=== PATIENT | male | born 1930 | race Caucasian/White ===

== ENCOUNTER 2016-08-15 09:14 | Emergency (ER) | payer OTHER ==
[~2016-08-15] VITALS: Ht 172.7 cm; Wt 75.7 kg
[~2016-08-15 09:14] MED LIST: CARV3.1212 PO; CHOL20003 PO; DIGO125T PO; LISI-170 PO; METH4TAB2 PO; OMEP20CA14 PO; OXYC1TAB7 PO; RIVA20TA PO; WARF5TAB
[2016-08-15 09:16] VITALS: BP 130/80
[2016-08-15] MEDS ORDERED: ALLO100T30 PO (09:31)
== END 2016-08-15 10:26 | disposition home or self-care (01) ==
LOC: ED 10:20
DX: R04.0 Epistaxis (principal); M10.9 Gout, unspecified; I48.91 Unspecified atrial fibrillation; N19 Unspecified kidney failure; I11.9 Hypertensive heart disease without heart failure; Z96.89 Presence of other specified functional implants
CPT/HCPCS: 30901

== ENCOUNTER 2016-08-19 06:24 | Emergency (ER) | payer OTHER ==
[~2016-08-19] VITALS: Ht 172.7 cm; Wt 75.0 kg
[~2016-08-19 06:24] MED LIST changes: +ALLO100T30 PO
[2016-08-19] MEDS ORDERED: PHENYLEPHRINE NASAL 0.5%, 15ML SPRAY NAS STA (06:42)
[2016-08-19] MEDS ORDERED: PHENYLEPHRINE NASAL 1%, 15ML SPRAY ONE (06:45)
[2016-08-19] MEDS ORDERED: LIDOCAINE 1%, 20ML INFIL ONE (07:00)
[2016-08-19 07:10] VITALS: BP 135/85
== END 2016-08-19 07:29 | disposition home or self-care (01) ==
LOC: ED 07:24
DX: R04.0 Epistaxis (principal); I10 Essential (primary) hypertension; M10.9 Gout, unspecified; I48.91 Unspecified atrial fibrillation; I11.9 Hypertensive heart disease without heart failure; I12.9 Hypertensive chronic kidney disease with stage 1 through stage 4 chronic kidney disease, or unspecified chronic kidney disease; N18.9 Chronic kidney disease, unspecified; Z95.0 Presence of cardiac pacemaker
CPT/HCPCS: 30901

== ENCOUNTER 2016-10-08 05:56 | Inpatient (IN) | payer OTHER ==
[~2016-10-08] VITALS: Ht 167.6 cm; Wt 81.2 kg
[2016-10-08] MEDS ORDERED: FUROSEMIDE 40 MG/4 ML IVPush ONE (06:30)
[2016-10-08] MEDS ORDERED: SODIUM CHLORIDE FLUSH 10ML SYR IVF ONE (06:30)
[2016-10-08] MEDS ORDERED: FUROSEMIDE 20 MG/2 ML ONE (06:36)
[2016-10-08] MEDS ORDERED: MECLIZINE CHEWABLE 25 MG TAB ONE (07:16)
[2016-10-08 07:17] LABS: BLOOD UREA NITROGEN 16 mg/dL (7-18)
[2016-10-08 07:23] LABS: ASPARTATE AMINO TRANSFERASE 22 U/L (15-37)
[2016-10-08] MEDS ORDERED: MECLIZINE CHEWABLE 25 MG TAB PO ONE (07:30)
[2016-10-08 07:31] LABS: IS PT STATUS REG ER OR PRE ER? YES
[2016-10-08] MEDS ORDERED: SODIUM CHLORIDE 0.9% 1,000 ML IV ONE (08:00)
[2016-10-08] MEDS ORDERED: CEFTRIAXONE 1,000 MG in SODIUM CHLORIDE 0.9% 50 ML IV ONE (08:00)
[2016-10-08] MEDS ORDERED: AZITHROMYCIN 500 MG in SODIUM CHLORIDE 0.9% 250 ML IV ONE (08:00)
[2016-10-08] MEDS ORDERED: RIVA15TA PO (08:51)
[2016-10-08] MEDS ORDERED: DOCUSATE 100 MG CAPSULE PO PRN (09:30)
[2016-10-08] MEDS ORDERED: BISACODYL 10 MG SUPP PR PRN (09:30)
[2016-10-08] MEDS ORDERED: ONDANSETRON 2MG/ML, 2ML IVPush PRN (09:30)
[2016-10-08] MEDS ORDERED: ACETAMINOPHEN 325 MG TABLET PO PRN (09:30)
[2016-10-08 09:49] VITALS: BP 127/88
[2016-10-08] MEDS: RIVAROXABAN 15 MG TABLET PO SCH (10:12)
[2016-10-08] MEDS: LISINOPRIL 5 MG TABLET PO SCH (10:12)
[2016-10-08] MEDS: ALLOPURINOL 100 MG TABLET PO SCH (10:13)
[2016-10-08] MEDS: DIGOXIN 0.125 MG TABLET PO SCH (10:13)
[2016-10-08] MEDS: CARVEDILOL 3.125 MG TABLET PO SCH ×2 (10:13→20:13)
[2016-10-08] MEDS: POLYETHYLENE GLYCOL 17 GM PACKET PO PRN (10:34)
[2016-10-08 13:13] VITALS: BP 131/91
[2016-10-08 13:41] LABS: IS PT STATUS REG ER OR PRE ER? NO
[2016-10-08 19:31] VITALS: BP 123/76
[2016-10-08] MEDS: SODIUM CHLORIDE FLUSH 3ML SYRINGE IVF SCH (20:14)
[2016-10-08] MEDS: CEFTRIAXONE PMX 1GM/50ML 50 ML IV SCH (20:14)
[2016-10-08] MEDS ORDERED: DIPHENHYDRAMINE 25 MG CAPSULE PO PRN (21:30)
[2016-10-09 01:09] VITALS: BP 135/74
[2016-10-09 05:41] LABS: BLOOD UREA NITROGEN 15 mg/dL (7-18)
[2016-10-09 08:00] VITALS: BP 118/68
[2016-10-09] MEDS: FUROSEMIDE 40 MG/4 ML IV SCH (09:18)
[2016-10-09] MEDS: RIVAROXABAN 15 MG TABLET PO SCH (09:21)
[2016-10-09] MEDS: SODIUM CHLORIDE FLUSH 3ML SYRINGE IVF SCH ×2 (09:22→20:15)
[2016-10-09] MEDS: SPIRONOLACTONE 25 MG TABLET PO SCH (09:22)
[2016-10-09] MEDS: LISINOPRIL 5 MG TABLET PO SCH (09:22)
[2016-10-09] MEDS: CARVEDILOL 3.125 MG TABLET PO SCH ×2 (09:22→20:14)
[2016-10-09] MEDS: OMEPRAZOLE 20 MG CAPSULE.DR PO SCH (09:22)
[2016-10-09] MEDS: CEFTRIAXONE PMX 1GM/50ML 50 ML IV SCH ×2 (09:23→20:14)
[2016-10-09] MEDS: FLUTICASONE NASAL SPRAY 16GM NAS SCH ×2 (09:23→20:14)
[2016-10-09] MEDS: ALLOPURINOL 100 MG TABLET PO SCH (09:24)
[2016-10-09] MEDS: DIGOXIN 0.125 MG TABLET PO SCH (09:26)
[2016-10-09] MEDS: AZITHROMYCIN 500 MG in SODIUM CHLORIDE 0.9% 250 ML IV SCH (11:41)
[2016-10-09 14:00] VITALS: BP 107/67
[2016-10-09 15:00] VITALS: BP 108/74
[2016-10-09 19:00] VITALS: BP 93/57
[2016-10-09 20:06] VITALS: BP 121/66
[2016-10-10 01:17] VITALS: BP 116/76
[2016-10-10 05:47] LABS: BLOOD UREA NITROGEN 17 mg/dL (7-18)
[2016-10-10] MEDS: AZITHROMYCIN 500 MG in SODIUM CHLORIDE 0.9% 250 ML IV SCH (08:08)
[2016-10-10] MEDS: FUROSEMIDE 40 MG/4 ML IV SCH (08:09)
[2016-10-10] MEDS: OMEPRAZOLE 20 MG CAPSULE.DR PO SCH (08:09)
[2016-10-10 08:11] VITALS: BP 123/74
[2016-10-10] MEDS: SPIRONOLACTONE 25 MG TABLET PO SCH (08:13)
[2016-10-10] MEDS: FLUTICASONE NASAL SPRAY 16GM NAS SCH ×2 (08:13→22:05)
[2016-10-10] MEDS: SODIUM CHLORIDE FLUSH 3ML SYRINGE IVF SCH ×2 (08:13→22:06)
[2016-10-10] MEDS: CARVEDILOL 3.125 MG TABLET PO SCH ×2 (08:13→22:06)
[2016-10-10] MEDS: LISINOPRIL 5 MG TABLET PO SCH (08:14)
[2016-10-10] MEDS: DIGOXIN 0.125 MG TABLET PO SCH (08:14)
[2016-10-10] MEDS: RIVAROXABAN 15 MG TABLET PO SCH (08:15)
[2016-10-10] MEDS: ALLOPURINOL 100 MG TABLET PO SCH (08:16)
[2016-10-10] MEDS: CEFTRIAXONE PMX 1GM/50ML 50 ML IV SCH ×2 (10:03→22:06)
[2016-10-10 14:13] VITALS: BP 119/75
[2016-10-10] MEDS ORDERED: SODIUM BICARBONATE 4.2%, 5ML ONE (15:04)
[2016-10-10] MEDS ORDERED: LIDOCAINE 1%, 20ML ONE (15:04)
[2016-10-10 15:56] LABS: CYTOLOGY BODY FLUID RECD INTO PATHOLOGY; CYTOLOGY BODY FLUID SOURCE PLEURAL FLUID
[2016-10-10 19:27] VITALS: BP 115/69
[2016-10-11 01:35] VITALS: BP 118/65
[2016-10-11] MEDS: POLYETHYLENE GLYCOL 17 GM PACKET PO PRN ×2 (05:20→13:59)
[2016-10-11 06:03] LABS: BLOOD UREA NITROGEN 16 mg/dL (7-18)
[2016-10-11 07:10] VITALS: BP 109/65
[2016-10-11] MEDS: AZITHROMYCIN 500 MG in SODIUM CHLORIDE 0.9% 250 ML IV SCH (08:30)
[2016-10-11] MEDS: ALLOPURINOL 100 MG TABLET PO SCH (09:00)
[2016-10-11] MEDS: FLUTICASONE NASAL SPRAY 16GM NAS SCH ×2 (09:48→20:31)
[2016-10-11] MEDS: FUROSEMIDE 40 MG/4 ML IV SCH (09:48)
[2016-10-11] MEDS: SODIUM CHLORIDE FLUSH 3ML SYRINGE IVF SCH ×2 (09:49→20:31)
[2016-10-11] MEDS: SPIRONOLACTONE 25 MG TABLET PO SCH (09:49)
[2016-10-11] MEDS: OMEPRAZOLE 20 MG CAPSULE.DR PO SCH (09:50)
[2016-10-11] MEDS: CARVEDILOL 3.125 MG TABLET PO SCH ×2 (09:50→20:31)
[2016-10-11] MEDS: DIGOXIN 0.125 MG TABLET PO SCH (09:50)
[2016-10-11] MEDS: LISINOPRIL 5 MG TABLET PO SCH (09:51)
[2016-10-11] MEDS: RIVAROXABAN 15 MG TABLET PO SCH (09:51)
[2016-10-11] MEDS: CEFTRIAXONE PMX 1GM/50ML 50 ML IV SCH ×3 (09:53→21:26)
[2016-10-11 12:05] VITALS: BP_SYST 101; BP_SYST 121; BP_DIAS 67; BP_DIAS 76
[2016-10-11] MEDS ORDERED: OMNIPAQUE 350 MG/ML, 75ML BOTTLE ONE (16:52)
[2016-10-11 19:04] VITALS: BP 102/61
[2016-10-11] MEDS ORDERED: DIPHENHYDRAMINE 25 MG CAPSULE PO ONE (20:00)
[2016-10-12 00:32] VITALS: BP 107/67
[2016-10-12 05:13] LABS: BLOOD UREA NITROGEN 16 mg/dL (7-18)
[2016-10-12 06:30] VITALS: BP 111/61
[2016-10-12] MEDS: AZITHROMYCIN 500 MG in SODIUM CHLORIDE 0.9% 250 ML IV SCH (08:04)
[2016-10-12] MEDS ORDERED: SPIR25TA PO (08:43)
[2016-10-12] MEDS ORDERED: FURO-92 PO (08:43)
[2016-10-12] MEDS ORDERED: CEFD300C37 PO (08:43)
[2016-10-12] MEDS ORDERED: ALBU8.5H3 INH (08:43)
[2016-10-12] MEDS ORDERED: LISI5TAB7 PO (08:43)
[2016-10-12] MEDS: LISINOPRIL 5 MG TABLET PO SCH (08:59)
[2016-10-12] MEDS: OMEPRAZOLE 20 MG CAPSULE.DR PO SCH (09:00)
[2016-10-12] MEDS: FLUTICASONE NASAL SPRAY 16GM NAS SCH (09:01)
[2016-10-12] MEDS: SPIRONOLACTONE 25 MG TABLET PO SCH (09:03)
[2016-10-12] MEDS: CARVEDILOL 3.125 MG TABLET PO SCH (09:04)
[2016-10-12] MEDS: DIGOXIN 0.125 MG TABLET PO SCH (09:04)
[2016-10-12] MEDS: RIVAROXABAN 15 MG TABLET PO SCH (09:05)
[2016-10-12] MEDS: ALLOPURINOL 100 MG TABLET PO SCH (09:06)
[2016-10-12] MEDS: CEFTRIAXONE PMX 1GM/50ML 50 ML IV SCH (09:51)
[2016-10-12] MEDS: FUROSEMIDE 40 MG/4 ML IV SCH (09:53)
[2016-10-12] MEDS: SODIUM CHLORIDE FLUSH 3ML SYRINGE IVF SCH (09:53)
[2016-10-12 12:08] VITALS: BP 110/66
== END 2016-10-12 16:20 | disposition home or self-care (01) | DRG 291 ==
LOC: ED 07:49 → EDIP 07:56 → 4EST 09:23
PROVIDERS: ADMIT Hospitalist
PROC: 0W993ZZ Drainage of Right Pleural Cavity, Percutaneous Approach (ICD-10-PCS; principal; 2016-10-10)
PROC: BB4BZZZ Ultrasonography of Pleura (ICD-10-PCS; 2016-10-10)
DX: I11.0 Hypertensive heart disease with heart failure (principal); J18.9 Pneumonia, unspecified organism; J96.01 Acute respiratory failure with hypoxia; E87.1 Hypo-osmolality and hyponatremia; D68.69 Other thrombophilia; N17.9 Acute kidney failure, unspecified; Q21.1 Atrial septal defect; J90 Pleural effusion, not elsewhere classified; I50.23 Acute on chronic systolic (congestive) heart failure; E78.5 Hyperlipidemia, unspecified; E86.1 Hypovolemia; I25.5 Ischemic cardiomyopathy; D53.9 Nutritional anemia, unspecified; I07.1 Rheumatic tricuspid insufficiency; I35.8 Other nonrheumatic aortic valve disorders; I48.2 Chronic atrial fibrillation; K76.1 Chronic passive congestion of liver; M10.9 Gout, unspecified; Z66 Do not resuscitate; Z79.01 Long term (current) use of anticoagulants; Z85.028 Personal history of other malignant neoplasm of stomach; Z86.19 Personal history of other infectious and parasitic diseases; Z87.891 Personal history of nicotine dependence; Z95.0 Presence of cardiac pacemaker
CPT/HCPCS: 32555; 36415; 70450; 71010; 71250; 71260; 80048; 80053; 80162; 81003; 83605; 83615; 83735; 83880; 83986; 84145; 84157; 84295; 84484; 85025; 87040; 87070; 87075; 87205; 88112; 88305; 89051; 93005; 93306; 96365; 96368; 96375; J0456; J0696; J1940; J3490; Q9967; J7030; J7050; Q0163

== ENCOUNTER → 2018-08-05 | Outpatient (CLI) | payer MEDICARE ==
[~2018-08-05] MED LIST changes: +ALBU8.5H8 INH; +CEFD300C37 PO; +CHOL2000 PO; -CHOL20003 PO; +FURO-92 PO; +LISI5TAB7 PO; +RIVA15TA PO; +SPIR25TA PO
== END | disposition home or self-care (01) ==
LOC: CVU 09:49
PROVIDERS: ATTEND Internal Medicine Cardiovascular Disease
DX: I08.3 Combined rheumatic disorders of mitral, aortic and tricuspid valves (principal); I65.22 Occlusion and stenosis of left carotid artery; I11.0 Hypertensive heart disease with heart failure; I50.9 Heart failure, unspecified; Z87.891 Personal history of nicotine dependence; Z95.0 Presence of cardiac pacemaker
CPT/HCPCS: 93306; 93880

== ENCOUNTER → 2019-08-06 | Outpatient (CLI) | payer MEDICARE ==
[~2019-08-06] MED LIST changes: -DIGO125T PO; +DIGO125T85 PO; -OMEP20CA14 PO; +OMEP20CA20 PO
== END | disposition home or self-care (01) ==
LOC: CFH 09:46
PROVIDERS: ATTEND Internal Medicine Cardiovascular Disease
DX: I08.3 Combined rheumatic disorders of mitral, aortic and tricuspid valves (principal); I42.0 Dilated cardiomyopathy
CPT/HCPCS: 93306